=== PATIENT | female | born 1965 | race Caucasian/White ===

== ENCOUNTER 2022-04-10 12:42 | Emergency (ER) | payer SELFPAY ==
--- NOTE | 2022-04-10 13:50 | NUR ---
Multiple Calls. NO response- Eloped
--- NOTE | 2022-04-10 14:00 | NUR ---
Multiple Calls. NO response- Eloped
--- NOTE | 2022-04-10 14:07 | NUR ---
Multiple Calls. NO response- Eloped
== END 2022-04-10 14:08 | disposition home or self-care (01) ==
LOC: ER 12:51
DX: Z53.21 Procedure and treatment not carried out due to patient leaving prior to being seen by health care provider (principal)